=== PATIENT | male | born 2000 | race Caucasian/White ===

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

== ENCOUNTER 2024-11-03 06:00 | Inpatient (IN) | payer BC, OTHER ==
[2024-11-03] MEDS ORDERED: LIDOCAINE 0.5% (PF) 5 MG/ML (50 ML SDV) SQ PRN (07:20)
[2024-11-03] MEDS ORDERED: TRANEXAMIC 1,000 MG/100ML-NACL 1,000 MG in EMPTY BAG 1 BAG IV PRN (07:20)
[2024-11-03] MEDS ORDERED: CARBOPROST TROMETHAMINE 250 MCG/ML 1 ML AMP IM PRN (07:20)
[2024-11-03] MEDS ORDERED: TERBUTALINE 1 MG/ML VIAL SQ PRN (07:20)
[2024-11-03] MEDS ORDERED: OXYTOCIN 10 UNIT/ML 1 ML VIAL IM PRN (07:20)
[2024-11-03] MEDS ORDERED: METHYLERGONOVINE 0.2 MG/ML 1 ML AMP IM PRN (07:20)
[2024-11-03 07:30] LABS: Basophils # (A) 0.05 10*3/uL (0.00-0.10); Basophils % (A) 0.5 %; Eosinophils # (A) 0.14 10*3/uL (0.04-0.35); Eosinophils % (A) 1.3 %; HCT 35.6 % (37.2-46.3); HGB 12.4 g/dL (12.0-15.0); Lymphocytes # (A) 2.34 10*3/uL (0.90-5.00); Lymphocytes % (A) 22.1 %; MCH 30.8 pg (27.0-32.0); MCHC 34.8 g/dL (32.0-37.0); MCV 88.6 fL (80.0-97.0); Monocytes # (A) 0.67 10*3/uL (0.20-1.00); Monocytes % (A) 6.3 %; Neutrophils # (A) 7.33 10*3/uL (1.80-7.70); Neutrophils % (A) 69.0 %; Platelet Count 230 10*3/uL (140-440); RBC 4.02 10*6/uL (4.10-5.20); RDW 12.5 % (11.5-14.5); WBC 10.61 10*3/uL (4.50-10.00)
[2024-11-03] MEDS ORDERED: OXYTOCIN 30 UNITS/500 ML NS 30 UNIT in SALINE 1 500ML.BAG IV SCH (07:30)
[2024-11-03] MEDS: LACTATED RINGERS 1,000 ML IV SCH (08:05)
[2024-11-03] MEDS: OXYTOCIN 30 UNITS/500 ML NS 30 UNIT in SALINE 1 500ML.BAG IV SCH (08:07)
--- NOTE | 2024-11-03 13:40 | P.HPOB ---
History of Present Illness H&P Date: 11/03/24 Chief Complaint: IUP at 39 and 1 sevenths weeks, single umbilical artery 24-year-old G2, P1 at 39 and 1 sevenths weeks who presents to labor and delivery for labor induction of labor secondary to single umbilical artery. Patient has been receiving routine care with myself. Patient notes good movement denies vaginal bleeding or loss of fluid. On blood work she has a blood type of O+, rubella status nonimmune, hepatitis B surface engine negative, HIV negative, RPR is nonreactive, group B strep culture is negative Review of Systems Constitutional: Denies chills, Denies fatigue, Denies fever Ears, nose, mouth and throat: Denies headache Cardiovascular: Reports leg edema Respiratory: Denies dyspnea Gastrointestinal: Denies constipation, Denies diarrhea, Denies nausea, Denies vomiting Genitourinary: Reports Past Medical History Past Medical History: No Reported History Additional Past Medical History / Comment(s): vaginal delivery 2022 wisdom teeth removed 2019 History of Any Multi-Drug Resistant Organisms: None Reported Past Surgical History: No Surgical Hx Reported Past Anesthesia/Blood Transfusion Reactions: No Reported Reaction Past Psychological History: No Psychological Hx Reported Smoking Status: Never smoker Past Alcohol Use History: None Reported Past Drug Use History: None Reported - Past Family History Mother History Unknown: Yes Family Medical History: No Reported History Medications and Allergies Home Medications Medication Instructions Recorded Confirmed Type Vit No.179/Iron/Folic 1 tab PO QID 11/03/24 11/03/24 History [ Tablet] Allergies Allergy/AdvReac Type Severity Reaction Status Date / Time No Known Allergies Allergy Verified 11/03/24 07:07 Exam Osteopathic Statement: *. No significant issues noted on an osteopathic structural exam other than those noted in the History and Physical/Consult. Vital Signs Temp Pulse Resp BP 11/03/24 07:36 97.1 F L 119 H 18 140/92 Intake and Output 11/02/24 11/03/24 11/03/24 22:59 06:59 14:59 Other: Weight 78.925 kg Targeted physical exam is performedGeneral Is a well-nourished well-developed female in no acute distress, breathing is nonlabored, heart has a regular rhythm, abdomen is gravid, on heart tones are noted to be category 1 and she is salvador every 3 minutes. Results Result Diagrams: 11/03/24 07:12 Abnormal Lab Results - Last 24 Hours (Table) 11/03/24 Range/Units 07:12 WBC 10.61 H (4.50-10.00) 10*3/uL RBC 4.02 L (4.10-5.20) 10*6/uL Hct 35.6 L (37.2-46.3) % Immature Gran # 0.08 H (0.00-0.04) 10*3/uL Assessment and Plan (1) Term Current Visit: Yes Status: Acute Code(s): Z34.90 - ENCNTR FOR SUPRVSN OF NORMAL , UNSP, UNSP TRIMESTER SNOMED Code(s): 60003342 (2) Single umbilical artery Current Visit: Yes Status: Acute Code(s): Q27.0 - CONGENITAL ABSENCE AND HYPOPLASIA OF UMBILICAL ARTERY SNOMED Code(s): 471160343 Plan: Admit to labor and delivery Pitocin induction of labor Amniotomy when appropriate Anticipate spontaneous vaginal delivery
[2024-11-03] MEDS ORDERED: diphenhydrAMINE 50 MG/ML 1 ML VIAL IVP PRN ×2 (13:41)
[2024-11-03] MEDS ORDERED: diphenhydrAMINE 25 MG CAP PO PRN (13:41)
[2024-11-03] MEDS ORDERED: SIMETHICONE 80 MG CHEWABLE PO PRN (13:41)
[2024-11-03] MEDS ORDERED: ZOLPIDEM 5 MG TAB PO PRN (13:41)
[2024-11-03] MEDS ORDERED: HYDROCORTISONE 2.5% RECTAL CREAM 30 GM TUBE RECTAL PRN (13:41)
[2024-11-03] MEDS ORDERED: LANOLIN CREAM 1 GM TUBE TOPICAL PRN (13:41)
[2024-11-03] MEDS ORDERED: BENZOCAINE/MENTHOL SPRAY 1 GM/SPRAY AEROSOL TOPICAL PRN (13:41)
--- NOTE | 2024-11-03 13:41 | P.PROBDLV ---
Vaginal Delivery Note - . Vaginal Delivery Note: Date of service 11/03/2024 Findings viable female delivered at 1329, weight of 7 pounds 5 ounces This is a 24-year-old G2, P1 at 39 and 1 sevenths weeks that presented for induction of labor secondary to single umbilical artery. Patient was admitted to labor and delivery and Pitocin induction of labor was begun. Patient progressed to 45 cm and amniotomy was performed. Clear fluid was obtained. Patient made good progress toward complete dilation. Patient began pushing and had a normal spontaneous vaginal delivery of a viable female infant at 1329, weight of 7 pounds 5 ounces Apgars of 9 and 10 at 1 and 5 minutes respectively. After 2-minute delay the umbilical cord was doubly clamped and cut, placenta was delivered spontaneously intact with a three-vessel cord being noted. Spontaneous cry was noted at . Uterus is noted to be firm below the umbilicus Estimated blood loss 100 cc Patient and infant tolerated delivery well and are resting comfortably All counts were to be correct x 2 at the end of the delivery
[2024-11-03 14:00] VITALS: RESP 16
[2024-11-03] MEDS: IBUPROFEN 800 MG TAB PO SCH (14:51)
[2024-11-03] MEDS: ACETAMINOPHEN TAB 500 MG TAB PO SCH (21:21)
[2024-11-03] MEDS: SENNOSIDES-DOCUSATE SODIUM 1 EACH TAB PO SCH (21:22)
[2024-11-04 00:20] VITALS: PULSE 99
--- NOTE | 2024-11-04 08:57 | P.DS ---
Providers Date of admission: 11/03/24 06:50 Expected date of discharge: 11/04/24 Attending physician: Mercy Washburn Primary care physician: Viviane De Leon - Discharge Diagnosis(es) (1) Term Current Visit: Yes Status: Acute (2) Single umbilical artery Current Visit: Yes Status: Acute (3) Status post vaginal delivery Current Visit: Yes Status: Acute Hospital Course: 24-year-old G2 now P2 that presented to labor and delivery on 11/03 for scheduled induction of labor secondary to single umbilical artery. For full details and the patient please the dictated history and physical. Patient was admitted and Pitocin induction of labor was begun. Patient made good progress to labor eventually becoming 4 to 5 cm. Patient underwent amniotomy and clear fluid was obtained. Patient had a normal spontaneous vaginal delivery of a viable female at 1329, weight of 7 pounds 5 ounces. No vaginal lacerations were appreciated at the time of delivery. Patient's course has been uneventful. On this day #1 she is ambulating and voiding without difficulty. She is tolerating a regular diet without nausea or vomiting. She states her pain is well-controlled. She denies excessive concerns. She would like discharge home later today. Patient Condition at Discharge: Good Plan - Discharge Summary New Discharge Prescriptions: No Action Vit No.179/Iron/Folic [ Tablet] 1 tab PO QID Discharge Medication List Vit No.179/Iron/Folic [ Tablet] 1 tab PO QID 11/03/24 [History] Follow up Appointment(s)/Referral(s): Mercy Washburn DO [Doctor of Osteopathic Medicine] - 6 Weeks Patient Instructions/Handouts: Vaginal Delivery (DC), Vaginal Delivery (GEN) Activity/Diet/Wound Care/Special Instructions: Tub baths or intercourse until 6 weeks . Bdgv-rxl-pduunci ibuprofen 6 00 mg or 3 tablets every 6 hours as needed for pain. Routine check at 6 weeks. Should she have any concerns prior this appointment she is urged to call the office and be seen prior Discharge Disposition: HOME SELF-CARE
[2024-11-04 09:48] VITALS: BP 131/80; TEMP 97.8
== END 2024-11-04 14:10 | disposition home or self-care (01) | DRG 807 ==
LOC: 4FBP 06:50 → MERGE 11-09 15:44
PROVIDERS: ADMIT Obstetrics & Gynecology Obstetrics; ATTEND Obstetrics & Gynecology Obstetrics
PROC: 10907ZC Drainage of Amniotic Fluid, Therapeutic from Products of Conception, Via Natural or Artificial Opening (ICD-10-PCS; principal; 2024-11-03)
PROC: 10E0XZZ Delivery of Products of Conception, External Approach (ICD-10-PCS; principal; 2024-11-03)
PROC: 3E033VJ Introduction of Other Hormone into Peripheral Vein, Percutaneous Approach (ICD-10-PCS; principal; 2024-11-03)
DX: O69.89X0 Labor and delivery complicated by other cord complications, not applicable or unspecified (principal); Z37.0 Single live birth; Z3A.39 39 weeks gestation of pregnancy
CPT/HCPCS: 85025; 86850; 86900; 86901